=== PATIENT | male | born 1995 ===

== ENCOUNTER → 2023-03-23 | Outpatient (REF) | LOC: M PLAIMG 08:26 | PROVIDERS: ATTEND Internal Medicine | DX: R52 Pain, unspecified (principal) ==

== ENCOUNTER 2023-03-31 21:10 | Emergency (ER) ==
[~2023-03-31] VITALS: Ht 188 cm; Wt 130.1 kg
[2023-03-31] MEDS ORDERED: NAPR1CAP PO (22:46)
[2023-03-31] MEDS ORDERED: GABA-282 PO (22:46)
[2023-03-31] MEDS ORDERED: TIZA10TA PO (22:46)
== END 2023-04-01 01:00 | disposition left against medical advice (07) ==
LOC: M ED 21:10
DX: Z53.21 Procedure and treatment not carried out due to patient leaving prior to being seen by health care provider (principal)